=== PATIENT | male | born 1970 | race Caucasian/White ===

== ENCOUNTER 2017-02-08 19:34 | Emergency (ER) | payer SELFPAY ==
[~2017-02-08] VITALS: Ht 175.3 cm; Wt 78.0 kg
[2017-02-08 19:35] VITALS: BP 188/99; PULSE 104; RESP 15; TEMP 98.4; O2SAT 96
[2017-02-08] MEDS ORDERED: AMLO10TA2 PO (19:44)
[2017-02-08 19:53] VITALS: BP 153/85; PULSE 92; RESP 18; O2SAT 95
[2017-02-08 20:54] LABS: BLOOD GAS BASE EXCESS 3.8 mmol/L (-2-2); BLOOD GAS CARBOXYHEMOGLOBIN 13.5 % (0-4); BLOOD GAS HCO3 28 mmol/L (22-26); BLOOD GAS O2 HGB SATURATION 83 % (90-100); BLOOD GAS PCO2 41 mmHg (38-42); BLOOD GAS PO2 88 mmHG (61-120); BLOOD GAS TOTAL HGB 14.4 G/DL (12.0-16.0); OXYGEN DEVICE Y; TEMP CORR TO 98.6
[2017-02-08 20:55] LABS: CRITICAL VALUE YES; FIO2 21 %
[2017-02-08 20:56] LABS: DRAW SITE RT RADIAL; NUMBER OF ARTERIAL PUNCTURES 1; STAT YES; ULNAR PULSE PRESENT
[2017-02-08 20:56] LABS: AUTOMATED NEUTROPHIL # 4.9 TH/MM3 (1.8-7.7); BASOPHIL # 0.1 TH/MM3 (0-0.2); BASOPHIL % 0.7 % (0.0-2.0); EOSINOPHIL # 0.2 TH/MM3 (0-0.4); HEMATOCRIT 42.3 % (39.0-51.0); HEMO FLAGS DIFF FINAL; LYMPHOCYTE # 3.3 TH/MM3 (1.0-4.8); MEAN CELL VOLUME 98.5 FL (80.0-100.0); MEAN CORPUSCULAR HEMOGLOBIN 34.9 PG (27.0-34.0); MEAN CORPUSCULAR HGB CONC 35.4 % (32.0-36.0); MONO % 8.1 % (0.0-8.0); NEUT % 53.2 % (16.0-70.0); PLATELET COUNT 192 TH/MM3 (150-450); RED BLOOD COUNT 4.29 MIL/MM3 (4.50-5.90); RED CELL DISTRIBUTION WIDTH 12.5 % (11.6-17.2); WHITE BLOOD COUNT 9.2 TH/MM3 (4.0-11.0)
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
[2017-02-08 21:07] LABS: ALT (GPT) 31 U/L (12-78); ANION GAP 9 MEQ/L (5-15); AST (GOT) 23 U/L (15-37); BICARBONATE 28.2 MEQ/L (21.0-32.0); BLOOD UREA NITROGEN 5 MG/DL (7-18); CHLORIDE 101 MEQ/L (98-107); GLOMERULAR FILTRATION RATE 111 ML/MIN (>89); POTASSIUM 3.6 MEQ/L (3.5-5.1); SODIUM (NA) 138 MEQ/L (136-145)
[2017-02-08 21:10] LABS: ALCOHOL 217 MG/DL (0-5); ALKALINE PHOSPHATASE 69 U/L (45-117); TOTAL BILIRUBIN ADULT 0.2 MG/DL (0.2-1.0)
[2017-02-08 21:14] LABS: ACETAMINOPHEN LESS THAN 2.0 MCG/ML (10.0-30.0)
[2017-02-08] MEDS ORDERED: ACETAMINOPHEN 500 MG CPLT PO ONE (21:15)
[2017-02-08] MEDS ORDERED: ONDANSETRON HCL 4 MG/2 ML VIAL IV PUSH ONE (21:15)
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
--- NOTE | 2017-02-08 22:09 | PD ---
Data Data Last Documented VS Vital Signs Date Time Temp Pulse Resp B/P (MAP) Pulse Ox O2 Delivery O2 Flow Rate FiO2 02/08/17 23:00 69 18 137/77 (97) 100 Non-Rebreather 15.00 02/08/17 19:35 98.4 Orders Orders Complete Blood Count With Diff (02/08/17 20:01) Comprehensive Metabolic Panel (02/08/17 20:01) Psych Screen (02/08/17 20:01) Drug Screen, Random Urine (02/08/17 20:01) Alcohol (Ethanol) (02/08/17 20:01) Salicylates (Aspirin) (02/08/17 20:01) Tylenol (Acetaminophen) (02/08/17 20:01) Electrocardiogram (02/08/17 20:21) Chest, Single Ap (02/08/17 20:21) Arterial Blood Gas (Abg) (02/08/17 ) Oxygen Administration (02/08/17 20:58) Ondansetron Inj (Zofran Inj) (02/08/17 21:15) Call Poison Control (02/08/17 21:02) Acetaminophen (Tylenol) (02/08/17 21:15) Lipase (02/08/17 21:10) Ckmb (Isoenzyme) Profile (02/08/17 21:52) Troponin I (02/08/17 21:52) Arterial Blood Gas (Abg) (02/08/17 23:00) CKMB (02/08/17 20:40) CKMB% (02/08/17 20:40) Labs Laboratory Tests Test 02/08/17 20:35 02/08/17 20:40 02/08/17 20:46 02/08/17 23:15 Urine Opiates Screen NEG Urine Barbiturates Screen NEG Urine Amphetamines Screen NEG Urine Benzodiazepines Screen NEG Urine Cocaine Screen NEG Urine Cannabinoids Screen NEG White Blood Count 9.2 TH/MM3 Red Blood Count 4.29 MIL/MM3 Hemoglobin 15.0 GM/DL Hematocrit 42.3 % Mean Corpuscular Volume 98.5 FL Mean Corpuscular Hemoglobin 34.9 PG Mean Corpuscular Hemoglobin Concent 35.4 % Red Cell Distribution Width 12.5 % Platelet Count 192 TH/MM3 Mean Platelet Volume 8.3 FL Neutrophils (%) (Auto) 53.2 % Lymphocytes (%) (Auto) 36.0 % Monocytes (%) (Auto) 8.1 % Eosinophils (%) (Auto) 2.0 % Basophils (%) (Auto) 0.7 % Neutrophils # (Auto) 4.9 TH/MM3 Lymphocytes # (Auto) 3.3 TH/MM3 Monocytes # (Auto) 0.7 TH/MM3 Eosinophils # (Auto) 0.2 TH/MM3 Basophils # (Auto) 0.1 TH/MM3 CBC Comment DIFF FINAL Differential Comment Blood Urea Nitrogen 5 MG/DL Creatinine 0.75 MG/DL Random Glucose 91 MG/DL Total Protein 7.9 GM/DL Albumin 3.9 GM/DL Calcium Level 9.1 MG/DL Alkaline Phosphatase 69 U/L Aspartate Amino Transf (AST/SGOT) 23 U/L Alanine Aminotransferase (ALT/SGPT) 31 U/L Total Bilirubin 0.2 MG/DL Sodium Level 138 MEQ/L Potassium Level 3.6 MEQ/L Chloride Level 101 MEQ/L Carbon Dioxide Level 28.2 MEQ/L Anion Gap 9 MEQ/L Estimat Glomerular Filtration Rate 111 ML/MIN Total Creatine Kinase 183 U/L Creatine Kinase MB 1.0 NG/ML Troponin I LESS THAN 0.02 NG/ML Lipase 333 U/L Salicylates Level 5.1 MG/DL Acetaminophen Level LESS THAN 2.0 MCG/ML Ethyl Alcohol Level 217 MG/DL Blood Gas Puncture Site RT RADIAL RT RADIAL Blood Gas Patient Temperature 98.6 98.6 Blood Gas HCO3 28 mmol/L 28 mmol/L Blood Gas Base Excess 3.8 mmol/L 3.3 mmol/L Blood Gas Oxygen Saturation 83 % 94 % Arterial Blood pH 7.45 7.39 Arterial Blood Partial Pressure CO2 41 mmHg 47 mmHg Arterial Blood Partial Pressure O2 88 mmHG 493 mmHG Arterial Blood Oxygen Content 17.0 Vol % 20.8 Vol % Arterial Blood Carboxyhemoglobin 13.5 % 5.1 % Arterial Blood Methemoglobin 1.0 % 0.8 % Blood Gas Hemoglobin 14.4 G/DL 14.8 G/DL Oxygen Delivery Device Y NONREB. MASK Blood Gas Inspired Oxygen 21 % Blood Gas Liter Flow 15 L/M MDM Supervised Visit with BILLY: Yes Narrative Course I, Dr. Lewis, have reviewed the advance practice practitioner's documentation and am in agreement, met with the patient face to face, made the diagnosis, and the medical decision making was done by me. See her note for further details. Briefly this is a 46-year-old male who was brought in by his family after attempting to commit suicide by carbon monoxide poisoning. The patient attempted to commit suicide by attaching a pipe from his car exhaust to inside of his car. Patient reports that he did this at around 1:00 AM today. He woke up a couple hours later and noticed that the pipe was no longer attached to his car. He notified his family who brought him to the emergency department. He was placed under Martinez act by my PA. He admits to drinking alcohol daily, drinking between 12 and 18 beers daily. He smokes marijuana occasionally. Denies any other illicit drug use. On exam he is awake and alert with a GCS of 15. Currently he has a slight headache and feels a little confused. No neuro deficits. No chest pain or dyspnea. He was placed on 100% nonrebreather shortly after he was evaluated. Vital signs show heart rate 92, blood pressure 153/85, pulse ox 95% on room air , oral temp of 98.4F. EKG shows no signs of ischemia. ABG shows pH of 7.45 with a carboxy hemoglobin of 13.5%. CBC is unremarkable. CMP is unremarkable. Lipase is 333. Urine drug screen is negative for all drugs tested. Tylenol level is negative. Salicylate level is 5.1. Alcohol level is 217. Poison control was contacted and they recommended checking his cardiac enzymes and repeating his ABG 2 hours after nonrebreather replacement. If his carboxy hemoglobin is between 6 and 10, he can be medically cleared for psychiatric evaluation. Cardiac enzymes are negative. Repeat ABG a couple of hours after the patient had been placed on 100% nonrebreather shows a carboxyhemoglobin of 5.1%. Patient was placed on 2 L nasal cannula. He remains awake without any neurologic deficits. He will be placed on a CIWA protocol. His sister is in the exam room with him, and they were both made aware of the circumstances of a Martinez act. He is medically cleared for psychiatric evaluation and disposition by them. Diagnosis Primary Impression: Suicide attempt Additional Impressions: Carbon monoxide exposure Alcohol intoxication Qualified Codes: F10.920 - Alcohol use, unspecified with intoxication, uncomplicated Austyn Lewis MD Feb 08, 2017 22:09
[2017-02-08 22:12] LABS: CREATINE KINASE 183 U/L (39-308)
[2017-02-08 23:00] VITALS: BP 137/77; PULSE 69; RESP 18; O2SAT 100
[2017-02-08 23:29] LABS: BLOOD GAS BASE EXCESS 3.3 mmol/L (-2-2); BLOOD GAS CARBOXYHEMOGLOBIN 5.1 % (0-4); BLOOD GAS HCO3 28 mmol/L (22-26); BLOOD GAS METHEMOGLOBIN 0.8 % (0-2); BLOOD GAS O2 HGB SATURATION 94 % (90-100); BLOOD GAS OXYGEN CONTENT 20.8 Vol % (12.0-20.0); BLOOD GAS PCO2 47 mmHg (38-42); BLOOD GAS PO2 493 mmHG (61-120); BLOOD GAS TOTAL HGB 14.8 G/DL (12.0-16.0); TEMP CORR TO 98.6
[2017-02-08 23:30] LABS: CRITICAL VALUE YES; DRAW SITE RT RADIAL; LITER FLOW 15 L/M; NUMBER OF ARTERIAL PUNCTURES 1; OXYGEN DEVICE NONREB. MASK; STAT YES; ULNAR PULSE PRESENT
[2017-02-08] MEDS ORDERED: LORazepam 2 MG TAB PO PRN (23:45)
[2017-02-08] MEDS ORDERED: FLUMAZENIL 0.5 MG/5 ML VIAL IV PUSH PRN (23:45)
[2017-02-08] MEDS ORDERED: LORazepam 1 MG TAB PO PRN (23:45)
[2017-02-08] MEDS ORDERED: LORazepam 2 MG/ML VIAL IV PUSH PRN ×4 (23:45)
[2017-02-08 23:53] VITALS: RESP 18; O2SAT 98
[2017-02-09 02:52] VITALS: BP 139/65; PULSE 82; RESP 16; O2SAT 97
[2017-02-09 06:21] VITALS: BP 141/66; PULSE 72; RESP 18; O2SAT 100
[2017-02-09 09:28] VITALS: BP 139/68; PULSE 74; RESP 20; O2SAT 97
[2017-02-09 14:25] VITALS: BP 150/93; PULSE 92; RESP 18
--- NOTE | 2017-02-09 17:20 | EKG ---
Date Performed: 02/08/2017 Time Performed: 20:31:47 PTAGE: 46 years EKG: Sinus rhythm NORMAL ECG NO PREVIOUS TRACING DOCTOR: Trish Verma Interpretating Date/Time 02/09/2017 17:18:09
== END 2017-02-09 18:17 ==
LOC: NEPD 19:34 → NEPJ 02-09 18:17
DX: T14.91XA Suicide attempt, initial encounter (principal); X83.8XXA Intentional self-harm by other specified means, initial encounter; Y92.810 Car as the place of occurrence of the external cause; F10.129 Alcohol abuse with intoxication, unspecified; Y90.7 Blood alcohol level of 200-239 mg/100 ml; I10 Essential (primary) hypertension; I25.10 Atherosclerotic heart disease of native coronary artery without angina pectoris; Z72.0 Tobacco use; Z79.899 Other long term (current) drug therapy
CPT/HCPCS: 36600; 71010; 80053; 80307; 82550; 82552; 82805; 83690; 84484; 85025; 93005; 96374; 96375; 99285; J2060; J2405